=== PATIENT | female | born 1985 | race Caucasian/White ===

== ENCOUNTER → 2017-04-09 | Day surgery (SDC) | payer OTHER ==
[~2017-04-09] MED LIST: ASPIR-LOW81 MG PO; DOSS PO; IBUPROFEN800 MG PO; NEURONTIN 100100 MG PO; PERCOCET 7.5-31 EACH PO; PROVENTIL HFA6.7 GM INH; ZOFRAN4 MG PO
== END | disposition home or self-care (01) ==
LOC: OR 06:15
PROVIDERS: Orthopaedic Surgery
PROC: 0MUN47Z Supplement Right Knee Bursa and Ligament with Autologous Tissue Substitute, Percutaneous Endoscopic Approach (ICD-10-PCS; principal; 2017-04-09 07:30)
DX: M23.8X1 Other internal derangements of right knee (principal); J45.909 Unspecified asthma, uncomplicated; Z79.899 Other long term (current) drug therapy; Z88.2 Allergy status to sulfonamides; Z87.19 Personal history of other diseases of the digestive system
CPT/HCPCS: 73560; 76000; 84703; C1713; J0171; J0690; J1100; J1200; J2250; J2405; J2710; J2795; J3010; J7030; J7120